=== PATIENT | female | born 1980 | race Caucasian/White ===

== ENCOUNTER → 2023-09-12 16:23 | Outpatient (REF) | payer OTHER, SELFPAY | LOC: HWWDC 16:23 | PROVIDERS: ATTENDING PHYSICIAN Family Medicine | DX: Z12.31 Encounter for screening mammogram for malignant neoplasm of breast (principal) | CPT/HCPCS: 77063; 77067 ==

== ENCOUNTER → 2023-09-19 14:36 | Outpatient (REF) | payer OTHER, SELFPAY | LOC: HWRAD 14:36 | PROVIDERS: ATTENDING PHYSICIAN Family Medicine | DX: M54.2 Cervicalgia (principal) | CPT/HCPCS: 76536 ==

== ENCOUNTER → 2024-09-25 16:50 | Outpatient (REF) | payer OTHER, SELFPAY | LOC: WDC 16:50 | PROVIDERS: ATTENDING PHYSICIAN Obstetrics & Gynecology Gynecology; FAMILY PHYSICIAN Family Medicine | DX: Z12.31 Encounter for screening mammogram for malignant neoplasm of breast (principal) | CPT/HCPCS: 77063; 77067 ==

== ENCOUNTER → 2024-10-04 14:21 | Outpatient (REF) | payer OTHER, SELFPAY ==
[2024-10-04 15:38] LABS: % Basophils 0.4 % (0-2); % Eosinophils 3.8 % (0-6); % Immature Granulocytes 0.4 % (0-0.5); % Neutrophils 55.4 % (42.2-75.2); Absolute Basophils 0.1 10^3/uL (0-0.2); Absolute Eosinophils 0.4 10^3/uL (0-0.7); Absolute Lymphocytes 4.1 10^3/uL (1.2-3.4); Absolute Monocytes 0.5 10^3/uL (0.1-0.6); Absolute Neutrophils 6.2 10^3/uL (1.4-6.5); Hematocrit 36.3 % (37.0-47.0); Hemoglobin 12.4 g/dL (12.0-16.0); Mean Corp Hgb Conc. 34.2 g/dL (33.0-37.0); Mean Corpuscular Hgb 26.9 pg (27.0-31.0); Mean Corpuscular Volume 78.7 fL (81.0-99.0); Mean Platelet Volume 10.7 fL (7.4-10.4); Nucleated Red Blood Cells % 0 %; Platelet Count 380 10^3/uL (130-400); Red Blood Cell Count 4.61 10^6/uL (4.20-5.40); Red Cell Dist. Width 13.8 % (11.5-14.5); White Blood Cell Count 11.3 10^3/uL (4.8-10.8)
== END ==
LOC: REG 14:21
PROVIDERS: ATTENDING PHYSICIAN Nurse Practitioner Adult Health
DX: D72.820 Lymphocytosis (symptomatic) (principal); R53.82 Chronic fatigue, unspecified; D50.9 Iron deficiency anemia, unspecified; D75.839 Thrombocytosis, unspecified
CPT/HCPCS: 36415; 85025

== ENCOUNTER → 2024-10-22 13:35 | Outpatient (REF) | payer OTHER, SELFPAY ==
[2024-10-22 15:27] LABS: Vitamin D, 25-OH*** 40.4 ng/mL (30-80)
== END ==
LOC: OIDL 13:35
PROVIDERS: ATTENDING PHYSICIAN Nurse Practitioner Adult Health
DX: D72.820 Lymphocytosis (symptomatic) (principal); R53.82 Chronic fatigue, unspecified; D50.9 Iron deficiency anemia, unspecified; D75.839 Thrombocytosis, unspecified
CPT/HCPCS: 82306

== ENCOUNTER 2024-11-14 06:21 | Day surgery (SDC) | payer OTHER, SELFPAY ==
[2024-11-14 13:50] LABS: Glucose - Point of Care 145 mg/dl (70-99)
== END 2024-11-14 15:57 | disposition home or self-care (01) ==
LOC: GI 06:21
PROVIDERS: ATTENDING PHYSICIAN Internal Medicine Gastroenterology; FAMILY PHYSICIAN Family Medicine
DX: D50.0 Iron deficiency anemia secondary to blood loss (chronic) (principal); K52.9 Noninfective gastroenteritis and colitis, unspecified; K64.8 Other hemorrhoids; R12 Heartburn; K44.9 Diaphragmatic hernia without obstruction or gangrene; K31.7 Polyp of stomach and duodenum; K29.80 Duodenitis without bleeding
CPT/HCPCS: 45380; 43239; 88305; 82962

== ENCOUNTER → 2025-02-04 15:37 | Outpatient (REF) | payer OTHER, SELFPAY ==
[2025-02-04 11:39] LABS: Hematocrit 38.8 % (37.0-47.0); Hemoglobin 13.2 g/dL (12.0-16.0); Mean Corp Hgb Conc. 34.0 g/dL (33.0-37.0); Mean Corpuscular Volume 86.6 fL (81.0-99.0); Platelet Count 306 10^3/uL (130-400); Red Cell Dist. Width 11.6 % (11.5-14.5)
[2025-02-04 12:56] LABS: Iron 101 ug/dl (37-170)
[2025-02-04 13:05] LABS: Total Iron Binding Capacity 286 ug/dl (265-497)
[2025-02-04 13:31] LABS: Ferritin 174.0 ng/ml (6.24-137)
== END ==
LOC: OIDL 15:37
PROVIDERS: ATTENDING PHYSICIAN Internal Medicine Hematology & Oncology
DX: D72.820 Lymphocytosis (symptomatic) (principal); R53.82 Chronic fatigue, unspecified; D50.9 Iron deficiency anemia, unspecified; D75.839 Thrombocytosis, unspecified
CPT/HCPCS: 82728; 83540; 83550; 85025